=== PATIENT | female | born 1970 | race Caucasian/White ===

== ENCOUNTER 2019-04-21 05:30 | Day surgery (SDC) | payer BC, OTHER ==
[~2019-04-21] VITALS: Ht 167.6 cm; Wt 87.1 kg
[2019-04-21] MEDS ORDERED: HYDROCODON-ACE1 EA11 PO (09:03)
[2019-04-21] MEDS ORDERED: DICLOFENAC SODI75 MG PO (09:03)
--- NOTE | 2019-04-22 17:48 | OR ---
[facility] [address] [facility] [place] [address] Signed DATE OF OPERATION: 04/21/2019 SURGEON: Logan Thomas MD PREOPERATIVE DIAGNOSIS: Superior labrum anterior and posterior tear, left shoulder. POSTOPERATIVE DIAGNOSIS: Superior labrum anterior and posterior tear, left shoulder. PROCEDURE PERFORMED: Left shoulder arthroscopy with SLAP repair. COLOR MAKER FORMULATOR: Suzie Golden PA-C. Suzie was present and critical for all portions of procedure. ANESTHESIA: General. BLOOD LOSS: Minimal. IMPLANTS: 2.9 PushLocks x2. BRIEF HISTORY: Olivia is a 49-year-old female with an injury to her shoulder and subsequent pain. She had failed nonoperative treatment. An MR arthrogram revealed a SLAP tear that was unstable. Risks and benefits of operative treatment discussed with her and she elected to proceed. Once consent was obtained, she was taken to the operating room. After adequate anesthesia, she was placed in a beach chair position. All downside pressure points well padded. The left shoulder was prepped and draped in a standard sterile fashion. The shoulder was injected with 15 mL of 0.25% Marcaine with epinephrine as was subacromial space. The standard posterior portal was made and the scope was introduced in the shoulder. ARTHROSCOPIC FINDINGS: Glenohumeral surfaces were intact. The rotator cuff was intact. The anterior-superior labrum was torn from about the 10:30 position to just anterior to the biceps. The Electronically Signed By: LOGAN THOMAS MD 04/22/19 1748 PATIENT NAME: OLIVIA WINSTON OPERATIVE REPORT DATE OF : 70 REPORT #: [id number] PHYSICIAN: LOGAN THOMAS MD PCP: NO PRIMARY CARE PHYSICIAN REPORT IS CONFIDENTIAL AND NOT TO BE RELEASED WITHOUT AUTHORIZATION [facility] [address] [place], [place] [address] Signed biceps itself was actually quite stable. The labrum was completely unstable. The remainder of the arthroscopy was within normal limits. DESCRIPTION OF OPERATION: Standard anterior and anterosuperior lateral portals were established using an outside-in technique. The glenoid rim was then debrided back to stable bony rim. The 1st suture was passed using the Curly-Q suture passer through the labrum inferiorly and the anchor was placed at about the 11 o'clock position. The suture end was cut. The 2nd anchor was placed at about the 11:30 position and similarly placed with excellent adhesion of the labrum to the glenoid. All suture ends were cut. Final radiograph showed good bleeding and good position. The scope was withdrawn. Portals were closed with 3-0 nylon and dressed with ProWick dressing. She tolerated the procedure well. All sponge, needle, and instrument counts were correct. Logan Thomas MD BA/LUISL /[id number] Copies: ~ Electronically Signed By: LOGAN THOMAS MD 04/22/19 1748 PATIENT NAME: OLIVIA WINSTON OPERATIVE REPORT DATE OF : 70 REPORT #: [id number] PHYSICIAN: LOGAN THOMAS MD PCP: NO PRIMARY CARE PHYSICIAN REPORT IS CONFIDENTIAL AND NOT TO BE RELEASED WITHOUT AUTHORIZATION
== END 2019-04-21 12:00 | disposition home or self-care (01) ==
LOC: OPS 05:30 → DS 05:30 → OPS 06:45
PROVIDERS: Specialist
PROC: 0MM24ZZ Reattachment of Left Shoulder Bursa and Ligament, Percutaneous Endoscopic Approach (ICD-10-PCS; principal; 2019-04-21 06:45)
DX: S43.432A Superior glenoid labrum lesion of left shoulder, initial encounter (principal); M19.90 Unspecified osteoarthritis, unspecified site; F17.200 Nicotine dependence, unspecified, uncomplicated; F17.210 Nicotine dependence, cigarettes, uncomplicated; F41.9 Anxiety disorder, unspecified; F32.9 Major depressive disorder, single episode, unspecified; Z79.899 Other long term (current) drug therapy; Z88.2 Allergy status to sulfonamides
CPT/HCPCS: 64415; 76942; C1713; J0330; J0690; J1100; J1885; J2001; J2250; J2405; J2704; J2795; J7121

== ENCOUNTER 2023-02-03 11:42 | Day surgery (SDC) | payer OTHER ==
[~2023-02-03] VITALS: Ht 167.6 cm; Wt 102.2 kg
[~2023-02-03 11:42] MED LIST: DICLOFENAC SODI75 MG PO; HYDROCODON-ACE1 EA11 PO
[2023-02-03 12:02] VITALS: BP 130/79
[2023-02-03] MEDS ORDERED: HORIZANT600 MG PO (12:05)
[2023-02-03] MEDS ORDERED: PAXIL20 MG PO (12:05)
[2023-02-03] MEDS ORDERED: COZAAR25 MG (12:10)
[2023-02-03 13:10] VITALS: BP 116/63
--- NOTE | 2023-02-03 14:07 | NUR ---
02/03/23 1404 David Mcmahon 1409 PATIENT ARRIVED INTO PACU ON 2L NC. PATIENT WAS AWAKE AND TALKING SO O2 WAS REMOVED. PATIENTS SATS HAVE REMAINED ABOVE 98%. PATIENT HAD NO COMPLAINTS OF PAIN OR DISCOMFORT AT THIS TIME. SINCE PATIENT WAS AWAKE SHE WAS OFFERED TO SIT UP WITH SHE DENIED STATING SHE WAS TIRED FROM STAY UP LATE AND WENT BACK TO SLEEP
[2023-02-03 14:20] VITALS: BP 138/86
--- NOTE | 2023-02-04 20:22 | OR ---
[facility] [address] [place], [place] [address] Signed DATE OF OPERATION: 02/03/2023 SURGEON: Gopi Serrano MD PREOPERATIVE DIAGNOSIS: Positive Cologuard test, otherwise asymptomatic; negative family history of colon cancer. POSTOPERATIVE DIAGNOSIS: Two small polyps, cecum and sigmoid. PROCEDURE: Total colonoscopy to cecum with cold morcellation polypectomy x2. ANESTHESIA: Intravenous sedation; fentanyl 200 mcg and Versed 6 mg. INDICATION: This 52-year-old white woman is a patient of Anthony Ochoa, who underwent Cologuard screening that was found to be positive on December 17, 2022. She has no symptoms of bleeding, diarrhea or constipation and no family history of colon cancer. She is admitted to undergo colonoscopy. She understands the risk of bleeding, infection, failure of diagnosis, missed diagnosis, and also possibility of a false-positive Cologuard test. Understanding this, she wished to proceed. FINDINGS: The prep was quite excellent. Complete colonoscopy was undertaken to the cecum with full intubation of the cecum. There appeared to be a small polyp in the cecum, which was excised with cold morcellation technique. Another possible polyp was noted of the sigmoid colon similarly excised. The remaining colon was otherwise normal. DESCRIPTION OF PROCEDURE: The patient was brought to the endoscopy suite and placed in the lateral decubitus position, given intravenous sedation to the point of slurred speech and nystagmus. Digital rectal examination was normal. An Olympus video colonoscope was passed in the rectum and manipulated throughout the colon ultimately intubating the cecum itself. The prep was notably quite good. Irrigation was undertaken thoroughly. In the cecum, a mucosal sessile lesion suggestive of polyp was noted, this was excised with cold morcellation technique. The scope was withdrawn and careful inspection upon withdrawal of the scope showed no sign of Electronically Signed By: GOPI SERRANO MD 02/04/232021 PATIENT NAME: ISAIAS WINSTON OPERATIVE REPORT DATE OF : 70 REPORT #: [id number] PHYSICIAN: GOPI SERRANO MD PCP: ANTHONY OCHOA REPORT IS CONFIDENTIAL AND NOT TO BE RELEASED WITHOUT AUTHORIZATION [facility] [address] [place], [place] [address] Signed abnormality until the sigmoid colon where linear appearing possible polyp was noted, this was excised with cold morcellation technique as well. Further withdrawal showed no other abnormality. Retroflexed view was normal. Scope was removed and the patient was taken to the recovery room in good condition. CONCLUDING DIAGNOSIS: Both lesions are probably polyps, though this is not certain entirely. We will certainly review her pathology report. If they are not polyps, the remaining colon appears to be free of any other suspicious lesion. PLAN: Recommend repeat colonoscopy in three years, sooner if symptoms should occur. She will return to the ongoing care of Anthony Ochoa otherwise. MD KATHYA Roy/KARLA /[id number] cc: Anthony Ochoa PA-C Copies: ANTHONY OCHOA PAC ~ Electronically Signed By: GOPI SERRANO MD 02/04/232021 PATIENT NAME: ISAIAS WINSTON ANNABELLA OPERATIVE REPORT DATE OF : 70 REPORT #: [id number] PHYSICIAN: GOPI SERRANO MD PCP: ANTHONY OCHOA PAC REPORT IS CONFIDENTIAL AND NOT TO BE RELEASED WITHOUT AUTHORIZATION
--- NOTE | 2023-02-07 12:58 | PATH ---
[facility] [address] [facility] [place], [place] [address] Signed SPECIMEN(S): A CECUM POLYP SPECIMEN(S): B DESCENDING COLON POLYP AT 60 CM SPECIMEN SOURCE: A. CECUM POLYP B. DESCENDING COLON POLYP AT 60 CM CLINICAL HISTORY: Colonoscopy. Positive Cologuard. FINAL PATHOLOGIC DIAGNOSIS: A. Cecum polyp: - Benign colonic mucosa, negative for specific diagnostic abnormality. B. Descending colon polyp at 60 cm: - Hyperplastic polyp (two fragments). JVR:serge MICROSCOPIC EXAMINATION: Histologic sections of all submitted blocks are examined by light microscopy. These findings, together with the gross examination, support the pathologic diagnosis. GROSS DESCRIPTION: A. The specimen, labeled and designated "Michael, cecum polyp," is received in formalin and consists of five velez soft tissue fragments, ranging from 0.1 to 0.2 cm. Entirely submitted in (A1). B. The specimen, labeled and designated "Hectormann, descending colon polyp at 60 cm," is received in formalin and consists of nine velez soft tissue fragments, ranging from 0.1 to 0.3 cm. Entirely submitted in (B1). VB (under the direct supervision of a pathologist) The Gross Description was prepared using a voice recognition system. The report was reviewed for accuracy; however, sound-alike word errors, addition and/or deletions may occur. If there is any question about this report, please contact Client Services. PERFORMING LABORATORY: Technical component was performed by [facility], [address] [place] [id number] (CLIA# [id number]). Professional interpretation was performed by [facility], [address] [place] [id number] (CLIA#: [id number]). PATIENT NAME: ISAIAS WINSTON PATHOLOGY DATE OF : 70 REPORT #: [id number] PHYSICIAN: [facility] PCP: ANTHONY KHALIL PAC REPORT IS CONFIDENTIAL AND NOT TO BE RELEASED WITHOUT AUTHORIZATION [facility] [address] [place] [address] [place], [place] [address] Signed Diagnostician: Elder Weinstein MD Pathologist Electronically Signed 02/07/2023 Copies: ~ PATIENT NAME: ISAIAS WINSTON PATHOLOGY DATE OF : 70 REPORT #: [id number] PHYSICIAN: [facility] PCP: ANTHONY KHALIL PAC REPORT IS CONFIDENTIAL AND NOT TO BE RELEASED WITHOUT AUTHORIZATION
== END 2023-02-03 14:33 | disposition home or self-care (01) ==
LOC: OPS 11:42 → DS 11:54 → OPS 13:00
PROVIDERS: ATTEND Surgery
PROC: 0DBN8ZX Excision of Sigmoid Colon, Via Natural or Artificial Opening Endoscopic, Diagnostic (ICD-10-PCS; 2023-02-03)
PROC: 0DBH8ZX Excision of Cecum, Via Natural or Artificial Opening Endoscopic, Diagnostic (ICD-10-PCS; principal; 2023-02-03 13:00)
DX: Z12.11 Encounter for screening for malignant neoplasm of colon (principal); K63.5 Polyp of colon; E66.3 Overweight; G60.9 Hereditary and idiopathic neuropathy, unspecified; Z88.2 Allergy status to sulfonamides; Z98.890 Other specified postprocedural states; Z98.51 Tubal ligation status
CPT/HCPCS: 99153; G0500; J2250; J3010